=== PATIENT | male | born 1960 | race Caucasian/White ===

== ENCOUNTER 2017-12-23 07:36 | Day surgery (SDC) | payer OTHER, SELFPAY ==
[2017-12-22 15:06] VITALS: BMI 27.0
[2017-12-23] VITALS (14 sets, daily range): BP systolic 116–167; BP diastolic 51–94; PULSE 62–86; RESP 14–18; TEMP 36.6; O2SAT 62–100; BMI 27.0
--- NOTE | 2017-12-23 10:15 | HMH.SCOPE ---
- Procedure: Date: 12/23/17 Procedure Performed:: Total colonoscopy with polypectomy by biopsy forceps and snare Indications:: Patient is a 57-year-old white male. He had apparently undergone colonoscopy by Dr. Veras 10 years ago and had a polyp removed. He has had some minor rectal bleeding which he attributes to hemorrhoids. He does have a family history of colon cancer. Performing Provider:: Tim Moran MD Referring Provider:: Morteza Calix MD Sedation:: Versed, fentanyl Procedure:: Consent was obtained and patient was taken to same-day surgery endoscopy procedure room. He was positioned in a lateral decubitus position. Adequate intravenous sedation was achieved. Digital examination was performed which revealed some prolapsing internal hemorrhoids. Variable stiffness Olympus colonoscope was inserted via the anus and advanced to the cecum with some minor difficulty as he has some floppiness of the sigmoid colon. Within the cecum the ileocecal valve and appendiceal orifice was clearly identified. There is a subtle irregularity within the cecum consistent with possible small polyp which was biopsied and removed with cold biopsy forceps. Careful surveillance was carried out as the colonoscope was withdrawn. The proximal transverse colon there was a diminutive adenomatous appearing polyp removed with cold biopsy forceps. In the sigmoid colon he had some rare diverticuli. At the rectosigmoid colon ultimately 15 cm from the anal verge there was a moderate pedunculated adenomatous appearing polyp measuring about 10-12 mm. This was removed with hot snare. Retroflexion within the rectum revealed some prolapsing internal hemorrhoids. Colonoscope was withdrawn. Findings:: Polyps Rare diverticuli Internal hemorrhoids Specimens:: Polyps Recommendations:: Based on histopathology and family history likely plan for repeat colonoscopy 3 years. Complications:: None Estimated blood obtained (mL): 2
--- NOTE | 2017-12-23 10:56 | P.PCN_ITS ---
- Procedure: Date: 12/23/17 Procedure Performed:: Esophagogastroduodenoscopy with biopsies Indications:: Patient is a pleasant 72-year-old white male originally referred by Yessica Balbuena for gallbladder. He states that he has had some occasional abdominal pain for quite some time. He also describes gas bloating and loose frequent stools for decades. He has been treated intermittently with acid staff antisubmarine officer agents but only takes these as needed. However, about 8 or 10 weeks ago over the holidays he had developed a cough. He states that this elicited what he describes as an attack. He localizes this to the esophageal area . He has had 2 significant attacks. He describes lower substernal discomfort. This is elicited by eating breads or swallowing large pills. He has some symptoms consistent with dysphasia and odynophagia. He had a gallbladder ultrasound done on 11/10/17 which revealed a small contracted gallbladder without stones. He did have a HIDA scan done on 11/18/17 which revealed 7% ejection fraction with CCK and was sent for surgical consultation. After my initial consultation I felt that his symptoms were atypical for gallbladder. Patient had actually done some research prior and concurred. This seem to be more of an upper GI etiology. I had him undergo upper GI series. This reveals esophageal spasm , small hiatal hernia, mild radiographic reflux. When he presented back to the office he stated that he was no longer having any symptoms. Discussion was made and given the nature of his symptoms I had recommended upper endoscopy to evaluate for lesion and Mcdaniel's esophagus. Arrangements were made for this. Performing Provider:: Tim Moran MD Referring Provider:: Hardeep Osborne MD Sedation:: Versed, fentanyl. Procedure:: Patient was taken to same-day surgery endoscopy procedure room. He was positioned in a lateral decubitus position. Adequate intravenous sedation was achieved with titration of Versed and fentanyl. Olympus endoscope was inserted via the oropharynx and advanced through the esophagus. In the distal esophagus there were findings consistent with Mcdaniel's esophagus spanning a couple of centimeters. Stomach was cannulated and insufflated. Retroflexion revealed very small hernia. There are diffuse gastritis. Gastric antral mucosal biopsy was obtained for CLOtest for H. pylori. Gastric biopsy was obtained to assess the gastritis. Pylorus was traversed and duodenal bulb and duodenum were unremarkable. Endoscope was withdrawn into the distal esophagus and multiple biopsies were obtained at the gastroesophageal junction. Endoscope was withdrawn. 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 pylori status. Treat H. pylori if needed. May require chronic proton pump inhibitors. Complications:: None Estimated blood obtained (mL): 3
== END 2017-12-23 11:00 | disposition home or self-care (01) ==
LOC: OUTP 07:39
PROVIDERS: Family Provider Internal Medicine Adolescent Medicine; PCP Family Medicine; Visit Provider Surgery
PROC: 0DJD8ZZ Inspection of Lower Intestinal Tract, Via Natural or Artificial Opening Endoscopic (ICD-10-PCS; CPT 45380; principal; 2017-12-23 08:30)
DX: Z12.11 Encounter for screening for malignant neoplasm of colon (principal); D12.0 Benign neoplasm of cecum; D12.5 Benign neoplasm of sigmoid colon; D12.3 Benign neoplasm of transverse colon; K57.32 Diverticulitis of large intestine without perforation or abscess without bleeding; K64.9 Unspecified hemorrhoids; Z80.0 Family history of malignant neoplasm of digestive organs; K29.60 Other gastritis without bleeding
CPT/HCPCS: 45380; 45385; 43239; 99152; 99153

== ENCOUNTER 2024-01-30 14:36 | Outpatient (CLI) | payer OTHER, SELFPAY | END 2024-01-30 23:59 | disposition home or self-care (01) | LOC: RT 14:37 | PROVIDERS: PCP Family Medicine; Visit Provider Physician Assistant | DX: R00.2 Palpitations (principal) | CPT/HCPCS: 93225 ==

== ENCOUNTER 2024-08-09 09:59 | Day surgery (SDC) | payer OTHER, SELFPAY ==
[2024-08-03 13:50] VITALS: BMI 27.0
[2024-08-09] MEDS: LACTATED RINGERS 1000ML 1,000 ML 25 ML IV (10:24)
[2024-08-09 10:28] VITALS: BP 191/113; PULSE 71; RESP 18; TEMP 36.6; O2SAT 96
--- NOTE | 2024-08-09 10:38 | EXP.ANES.CKL ---
[facility] Disclaimer: The information contained in this section may have been updated after the patient was seen, as this information can be updated by other users. Medical History Hypertension Surgical History History of appendectomy Family History Father Colon cancer Social History Smoking Status: Former smoker alcohol intake: current alcohol intake frequency: 3 or more drinks per day counseling provided: provider counseling substance use type: denies use current occupational status: employed Travel in the last 8 weeks: None [facility] Anesthesia Checklist Patient Identification Patient Identification: Arm Band and Verbal (Name & ) Structural Data Admitted From: Home Planned Operative Procedure/s: Colonoscopy Consent for Planned Operative Procedure(s) Verified: Yes Verified Documents: Surgical Consent and History and Physical NPO Status Verified Time NPO: 00:00 Additional verifications Anesthesia Reactions: No Airway Assessment Mallampati Score:: Class II C-Spine Mobility Assessed: Yes TMJ Mobility Assessed: Yes Dentition: Good Dentition Neurological Assessment Level of Consciousness: Awake Hx Seizures: No Numbness or tingling in extremities: No Anesthesia Plan Anesthesia Risk discussed: Yes Anesthesia Plan: Verified ASA Class: II Anesthesia Type: MAC
[2024-08-09 11:17] VITALS: O2SAT 97
--- NOTE | 2024-08-09 11:26 | EXP.HP ---
History of Present Illness *Admission Date: 08/09/24 *Reason for visit:: Surveillance-personal history of colon polyps *History of present illness: Mr. Jim is a 64-year-old gentleman who is here for surveillance colonoscopy secondary to a personal history of colon polyps. The patient's father had colon cancer that was advanced in his mid 70s. The examination is deemed medically necessary for colonoscopy. The patient has been seen, interviewed and examined prior to the procedure by both myself and the anesthesia provider. [facility] Disclaimer: The information contained in this section may have been updated after the patient was seen, as this information can be updated by other users. Medical History Hypertension Surgical History History of appendectomy Family History Father Colon cancer Social History (Updated 08/09/24 @ 11:21 by Ari Parkinson CRNA) Smoking Status: Former smoker alcohol intake: current alcohol intake frequency: 3 or more drinks per day counseling provided: provider counseling substance use type: denies use current occupational status: employed Travel in the last 8 weeks: None Other Medical History Have you received the Flu Vaccine for this season: Yes Review of Systems Review of Systems Review of systems (narrative): Negative *Cardiovascular Comments: Negative *Gastrointestinal Comments: Negative *Genitourinary Comments: Negative *Musculoskeletal Comments: Negative *Neurologic Comments: Negative Meds Home Medications and Allergies Home Medications ?Medication ?Instructions ?Recorded ?Confirmed ?Type lisinopril 20 mg tablet 20 mg PO ONCE blood pressure 12/15/17 08/03/24 History metoprolol succinate 25 mg 25 mg PO ONCE blood pressure 12/15/17 08/03/24 History tablet,extended release 24 hr hydrochlorothiazide 25 mg tablet 25 mg PO DAILY 08/03/24 08/03/24 History New Prescriptions to Start Prescriptions: Allergies Allergy/AdvReac Type Severity Reaction Status Date / Time No Known Allergies Allergy Verified 01/06/18 12:53 Exam Data for Last 24 hours Vital signs and Labs for Last 24 Hours: Temp Pulse Resp BP Pulse Ox O2 Del Method O2 Flow Rate 97.9 F 71 18 191/113 H 96 Nasal Cannula 5 08/09/24 10:28 08/09/24 10:28 08/09/24 10:28 08/09/24 10:28 08/09/24 10:28 08/09/24 11:17 08/09/24 11:17 *Routine HEENT Exam Head: Present normocephalic Eye: Present EOMI and PERRL ENT: Present mucous membranes moist *Routine Neck Exam Neck: Present supple *Routine Respiratory Exam Respiratory: Present CTA bilaterally *Routine Cardiovascular Exam Cardiovascular: Present RRR *Routine Abdominal Exam Abdominal: Present soft and normoactive bowel sounds; Absent tenderness *Routine Rectal Exam Rectal:: deferred *Routine Genitalia Exam Genitalia:: deferred *Routine Extremities Exam Extremities: Absent cyanosis, clubbing or edema *Routine Skin Exam Skin: Present warm; Absent rash *Routine Neurological Exam Neurological: Present alert and oriented X3 Assessment and Plan *Assessment and plan (1) Personal history of adenomatous and serrated colon polyps: Status: Acute Category: Medical Code(s): Z86.0101 - Personal history of adenomatous and serrated colon polyps (2) Family history of colon cancer in father: Status: Acute Category: Medical Code(s): Z80.0 - Family history of malignant neoplasm of digestive organs Plan A/P: 1. Personal history of adenomatous polyps and family history is the preprocedural diagnosis. The patient will be anesthetized/sedated using MAC sedation. The patient has been seen and examined. Cardiac and lung assessment prior to the examination is stable. Proceed with planned colonoscopy
--- NOTE | 2024-08-09 11:44 | P.PCN_ITS ---
[facility] Procedure Note Date: 08/09/24 Time: 11:44 Procedure Note:: Colonoscopy Procedure Report: Colonoscopy with cold snare polypectomy Endoscopist: Clifford Vargas II, MD Referring physician: Elmer Calix MD Date of Procedure: August 09, 2024 Equipment: Olympus 190 variable stiffness pediatric colonoscope Sedation: MAC sedation Indication: Mr. Jim is a 64-year-old gentleman who is here for follow-up surveillance colonoscopy secondary to a personal history of adenomatous polyps. The patient did have a colonoscopy in December 2017 and had a larger rectosigmoid pedunculated 12 mm polyp that was a tubulovillous adenoma and was completely excised. He had 2 additional diminutive polyps (small tubular adenoma and mucosal prolapse polyp) which were also removed. The patient does state that his father had advanced colon cancer in his 70s. The patient reports no abdominal pain, weight loss, change in his bowel habits or rectal bleeding. Procedure: Prior to the procedure, a history and physical exam was performed, and patient's medications and allergies were reviewed. The risks, benefits and alternatives of the sedation and procedure were discussed with the patient. All questions were answered and informed consent was obtained. The patient was brought to the procedure room. Patient identification and proposed procedure were verified by the physician and the nurse. The patient was placed in a left lateral decubitus position and the scope was passed under direct vision. Throughout the procedure, the patient's blood pressure, pulse, and oxygen saturations were monitored continuously. The colonoscopy was accomplished without difficulty. The patient tolerated the procedure well. Findings: On digital rectal examination there was normal rectal tone. There were no external hemorrhoids. The prostate was 2+, smooth, soft, symmetric without nodules. The colonoscope was introduced through the anal canal to the rectum and advanced to the cecum. The ileocecal valve and appendiceal orifice were identified. The scope was advanced a short distance into the ileum which appeared grossly normal. The scope was then withdrawn into the colon. The cecum, ascending and transverse colon and mucosa were grossly normal. There were 2 polyps (descending x 1 (5 mm) and rectum x 1 (4 mm)). Both of these were removed via cold snare polypectomy. The rectal polyp was removed but not retrieved. There were scattered diverticuli throughout the descending and sigmo id colon (LEFT colon). The rectum itself was normal. Upon retroflexion within the rectum there were grade 2-3 internal hemorrhoids. The preparation was excellent throughout with [place] Preparation Score of 9. The cecal time was 13 minutes. Impression: 1. Diminutive colonic polyps x 2 2. Left-sided diverticulosis 3. Grade 2-3 internal hemorrhoids Plan: I will follow-up the polyp histology and recommend repeat surveillance colonoscopy because of his prior advanced adenoma (tubulovillous adenoma) and family history (father with colon cancer). I would encourage psyllium bulking fiber supplementation on a maintenance basis.
[2024-08-09 11:48] VITALS: BP 130/87; PULSE 81; RESP 16; TEMP 36.6; O2SAT 98
[2024-08-09 11:58] VITALS: BP 151/90; PULSE 84; RESP 16; O2SAT 98
[2024-08-09 12:08] VITALS: BP 150/101; PULSE 82; RESP 18; O2SAT 99
[2024-08-09 12:18] VITALS: BP 145/109; PULSE 89; RESP 18; O2SAT 99
== END 2024-08-09 12:29 | disposition home or self-care (01) ==
PROVIDERS: PCP Family Medicine; Visit Provider Internal Medicine Gastroenterology
PROC: 0DJD8ZZ Inspection of Lower Intestinal Tract, Via Natural or Artificial Opening Endoscopic (ICD-10-PCS; CPT 45378; principal; 2024-08-09 11:30)
DX: K63.5 Polyp of colon (principal); K57.30 Diverticulosis of large intestine without perforation or abscess without bleeding; K64.8 Other hemorrhoids; Z86.0101 Personal history of adenomatous and serrated colon polyps; Z80.0 Family history of malignant neoplasm of digestive organs
CPT/HCPCS: 45385; J7120